=== PATIENT | male | born 1985 | race Caucasian/White ===

== ENCOUNTER 2018-01-27 23:17 | Emergency (ER) | payer BC ==
[2018-01-28 00:20] LABS: CHLORIDE,CL 106 mmol/L (98-107); SODIUM,NA 140 mmol/L (136-148)
--- NOTE | 2018-01-28 00:57 | EDM.PDOC ---
ED HPI GENERAL MEDICAL PROBLEM - General Chief Complaint: Respiratory Problem Stated Complaint: TROUBLE BREATHING/SICK Time Seen by Provider: 01/27/18 23:59 Source of Information: Reports: Patient History Limitations: Reports: No Limitations - History of Present Illness INITIAL COMMENTS - FREE TEXT/NARRATIVE: HISTORY AND PHYSICAL: History of present illness: 32-year-old male presenting emergency department with chief complaint of coughing 5 weeks. Patient states that for the past 5 weeks he has had coughing with yellowish/ hinson sputum production. He has had some episodes of nausea with coughing. He also reports some sweats and chills. No fever however. Feels his chest is tight but no overt chest pain, palpitations, shortness of breath, syncopal episodes, focal visits. Does not take medications regularly and has no known allergies. Is not a smoker and has no history of asthma or COPD. Review of systems: As per history of present illness and below otherwise all systems reviewed and negative. Past medical history: As per history of present illness and as reviewed below otherwise noncontributory. Surgical history: As per history of present illness and as reviewed below otherwise noncontributory. Social history: No reported history of drug or alcohol abuse. Family history: As per history of present illness and as reviewed below otherwise noncontributory. Physical exam: HEENT: Atraumatic, normocephalic, pupils reactive, negative for conjunctival pallor or scleral icterus, mucous membranes moist, throat clear, neck supple, nontender, trachea midline. Lungs: Clear to auscultation, breath sounds equal bilaterally, chest nontender. Heart: S1S2, regular, negative for clicks, rubs, or JVD. Abdomen: Soft, nondistended, nontender. Negative for masses or hepatosplenomegaly. Negative for costovertebral tenderness. Pelvis: Stable nontender. Genitourinary: Deferred. Rectal: Deferred. Extremities: Atraumatic, negative for cords or calf pain. Neurovascular unremarkable. Neuro: Awake, alert, oriented. Cranial nerves II through XII unremarkable. Cerebellum unremarkable. Motor and sensory unremarkable throughout. Exam nonfocal. Diagnostics: cbc,cmp,cxr Therapeutics: Z-Corbin 1, albuterol inhaler, Tessalon Perles Impression: Bronchitis Cough with production Plan: CBC, CMP, and chest x-ray were unremarkable. Patient most likely has bronchitis greater than 4 weeks. Secondary to being symptomatically for greater than 4 weeks we'll treat with a Z-Corbin as well as inhaled albuterol every 4-6 hours. Also given a prescription for Tesleeroyon Lesly. Instructed him to follow-up with a primary care provider as he is not had one. He should return to emergency department if any new or worsening symptoms. Definitive disposition and diagnosis as appropriate pending reevaluation and review of above. Chest Pain Score (Numeric/FACES): 5 - Related Data Allergies Allergy/AdvReac Type Severity Reaction Status Date / Time No Known Allergies Allergy Verified 01/27/18 23:31 Home Meds: Home Meds . [No Known Home Meds] 05/19/15 [History] Past Medical History - Past Health History Medical/Surgical History: Denies Medical/Surgical History HEENT History: Reports: None Cardiovascular History: Reports: None Respiratory History: Reports: None Gastrointestinal History: Reports: None Genitourinary History: Reports: None Musculoskeletal History: Reports: None Neurological History: Reports: None Psychiatric History: Reports: None Endocrine/Metabolic History: Reports: None Hematologic History: Reports: None Immunologic History: Reports: None Oncologic (Cancer) History: Reports: None Dermatologic History: Reports: None - Infectious Disease History Infectious Disease History: Reports: None - Past Surgical History Head Surgeries/Procedures: Reports: None Male Surgical History: Reports: None Social & Family History - Tobacco Use Smoking Status *Q: Never Smoker Second Hand Smoke Exposure: No - Caffeine Use Caffeine Use: Reports: None - Recreational Drug Use Recreational Drug Use: No ED ROS GENERAL - Review of Systems Review Of Systems: ROS reveals no pertinent complaints other than HPI. ED EXAM, GENERAL - Physical Exam Exam: See Below Course - Vital Signs Last Recorded V/S: Last Vital Signs Temp 97.4 F 01/27/18 23:28 Pulse 87 01/27/18 23:49 Resp 18 01/27/18 23:49 BP 135/91 H 01/27/18 23:49 Pulse Ox 96 01/27/18 23:28 - Orders/Labs/Meds Orders: Active Orders 24 hr Category Date Time Status CXR [Chest 2V] [CR] Stat Exams 01/27/18 23:44 Taken Labs: Laboratory Tests 01/27/18 01/27/18 Range/Units 23:50 23:50 WBC 7.81 (4.0-11.0) K/uL RBC 5.36 (4.50-5.90) M/uL Hgb 16.0 (13.0-17.0) g/dL Hct 44.7 (38.0-50.0) % MCV 83.4 (80.0-98.0) fL MCH 29.9 (27.0-32.0) pg MCHC 35.8 (31.0-37.0) g/dL RDW Std Deviation 38.2 (28.0-62.0) fl RDW Coeff of Brock 13 (11.0-15.0) % Plt Count 265 (150-400) K/uL MPV 9.80 (7.40-12.00) fL Neut % (Auto) 50.4 (48.0-80.0) % Lymph % (Auto) 37.6 (16.0-40.0) % [place] % (Auto) 8.5 (0.0-15.0) % Eos % (Auto) 3.2 (0.0-7.0) % Baso % (Auto) 0.3 (0.0-1.5) % Neut # (Auto) 3.9 (1.4-5.7) K/uL Lymph # (Auto) 2.9 H (0.6-2.4) K/uL [place] # (Auto) 0.7 (0.0-0.8) K/uL Eos # (Auto) 0.3 (0.0-0.7) K/uL Baso # (Auto) 0.0 (0.0-0.1) K/uL Nucleated RBC % 0.0 /100WBC Nucleated RBCs # 0 K/uL Sodium 140 (136-148) mmol/L Potassium 3.9 (3.5-5.1) mmol/L Chloride 106 (98-107) mmol/L Carbon Dioxide 28.5 (21.0-32.0) mmol/L BUN 18 (7.0-18.0) mg/dL Creatinine 1.3 (0.8-1.3) mg/dL Est Cr Clr Drug Dosing 76.98 mL/min Estimated GFR (MDRD) > 60.0 ml/min Glucose 141 H (74-106) mg/dL Calcium 8.4 L (8.5-10.1) mg/dL Total Bilirubin 0.6 (0.2-1.0) mg/dL AST 19 (15-37) IU/L ALT 45 (14-63) IU/L Alkaline Phosphatase 78 (46-116) U/L Total Protein 7.5 (6.4-8.2) g/dL Albumin 4.0 (3.4-5.0) g/dL Globulin 3.5 (2.0-3.5) g/dL Albumin/Globulin Ratio 1.1 L (1.3-2.8) Departure - Departure Time of Disposition: 00:56 Disposition: Home, Self-Care 01 Condition: Good Clinical Impression: Bronchitis - Discharge Information Referrals: PCP,None [Primary Care Provider] - Additional Instructions: My general discharge The following information is given to patients seen in the emergency department who are being discharged to home. This information is to outline your options for follow-up care. We provide all patients seen in our emergency department with a follow-up referral. The need for follow-up, as well as the timing and circumstances, are variable depending upon the specifics of your emergency department visit. If you don't have a primary care physician on staff, we will provide you with a referral. We always advise you to contact your personal physician following an emergency department visit to inform them of the circumstance of the visit and for follow-up with them and/or the need for any referrals to a consulting specialist. The emergency department will also refer you to a specialist when appropriate. This referral assures that you have the opportunity for follow-up care with a specialist. All of these measure are taken in an effort to provide you with optimal care, which includes your follow-up. Under all circumstances we always encourage you to contact your private physician who remains a resource for coordinating your care. When calling for follow-up care, please make the office aware that this follow-up is from your recent emergency room visit. If for any reason you are refused follow-up, please contact the [facility] Emergency Department at and asked to speak to the emergency department charge nurse. [facility] [address] [place] [id number] [facility] [address] [place] [address] Follow-up with one of the above numbers for primary care physician within the next 1-2 weeks. Take medications as prescribed. Return to emergency department if any new or worsening symptoms. - My Orders Last 24 Hours: My Active Orders 01/27/18 23:44 CXR [Chest 2V] [CR] Stat - Assessment/Plan Last 24 Hours: My Active Orders 01/27/18 23:44 CXR [Chest 2V] [CR] Stat
[2018-01-28 01:28] VITALS: BP 130/78
--- NOTE | 2018-01-29 09:47 | CR ---
EXAM DATE: 01/27/18 PATIENT'S AGE: 32 Patient: JUAN PABLO DUVALL Facility: [place], [place] Site . Site : [id number] Study: XRay Chest [id number]/4/2018 12:35:44 AM Ordering Physician: Doctor Delacruz Final Report: INDICATION: cough productive CHEST, PA AND LATERAL Upright PA and lateral radiographs of the chest were performed. Comparison: No previous studies are currently available for comparison. The lungs appear clear and there are no pleural effusions. Heart size and pulmonary vasculature appear normal. Visualized bones show no significant findings. IMPRESSION: No acute intrathoracic abnormality identified. ROSALVA DUNLAP MD [employer] Dictated by: Jose Dunlap MD @ 01/28/2018 00:38:57 (Electronic Signature) Report Signed by Proxy. [facility]
== END 2018-01-28 01:20 | disposition home or self-care (01) ==
LOC: MW.ED 23:17
DX: J40 Bronchitis, not specified as acute or chronic (principal)
CPT/HCPCS: 36415; 71046; 71046-26; 80053; 85025; 99284

== ENCOUNTER 2019-12-30 16:36 | Emergency (ER) | payer BC ==
[2019-12-30] MEDS ORDERED: Ondansetron 4 MG/2 ML SDV IVPUSH ONE (16:58)
[2019-12-30] MEDS ORDERED: Ketorolac 30 MG/ML SDV IVPUSH ONE (16:58)
[2019-12-30] MEDS ORDERED: Sodium Chloride 0.9% 1,000 ML IV ONE (16:58)
--- NOTE | 2019-12-30 17:01 | EDM.PDOC ---
ED HPI GENERAL MEDICAL PROBLEM - General Chief Complaint: Abdominal Pain Stated Complaint: LEFT ABDOMINAL PAIN Time Seen by Provider: 12/30/19 16:42 Source of Information: Reports: Patient History Limitations: Reports: No Limitations - History of Present Illness INITIAL COMMENTS - FREE TEXT/NARRATIVE: HISTORY AND PHYSICAL: History of present illness: Patient is a 34-year-old male who presents to the emergency room with complaints of left low abdominal pain that radiates into his flank. He states approximately 1 to 2 hours prior to arrival he had the sensation of needing to void and he was unable to go. He then started having pain in the left low abdomen that radiates into his left flank area. Prior to this episode he has been voiding and having routine bowel movements without any difficulty or blood noted. He denies any injury, trauma or falls. Patient denies any fever, chills , headache, change in vision, syncope or near syncope. Denies any chest pain, back pain, shortness of breath or cough. Denies any vomiting, diarrhea, or constipation. Denies any testicular pain, swelling or redness. Patient has been eating and drinking appropriately. Review of systems: As per history of present illness and below otherwise all systems reviewed and negative. Past medical history: As per history of present illness and as reviewed below otherwise noncontributory. Surgical history: As per history of present illness and as reviewed below otherwise noncontributory. Social history: See social history for further information Family history: As per history of present illness and as reviewed below otherwise noncontributory. Physical exam: General: Developed and well-nourished 34-year-old male. Alert and oriented. Nontoxic-appearing and in moderate discomfort due to pain. HEENT: Atraumatic, normocephalic, pupils equal and reactive bilaterally, negative for conjunctival pallor or scleral icterus, mucous membranes moist, nontender, trachea midline. No drooling or trismus noted. No meningeal signs. No hot potato voice noted. Lungs: Clear to auscultation, breath sounds equal bilaterally, chest nontender. Heart: S1S2, regular rate and rhythm without overt murmur Abdomen: Soft, nondistended, nontender. Negative for masses or hepatosplenomegaly. Negative for costovertebral tenderness. Pelvis: Stable nontender. Skin: Intact, warm, dry. No lesions or rashes noted. Extremities: Atraumatic, moves all extremities per self without difficulty or deficits, negative for cords or calf pain. Neurovascular unremarkable. Neuro: Awake, alert, oriented. Cranial nerves II through XII unremarkable. Cerebellum unremarkable. Motor and sensory unremarkable throughout. Exam nonfocal. Notes: CT of the abdomen and pelvis shows a 2.4 mm obstructing stone in the left distal ureter located at the UVJ. There is no hydronephrosis. Lab work is otherwise unremarkable. We will continue to attempt to control his pain as he did not get as much relief as expected with the Toradol and morphine. Patient was made aware of CT and lab findings. Patient has been up to void 2-3 times since being here, he now feels like he can fully empty his bladder. Patient's pain has improved greatly. We discussed signs and symptoms that would prompt him to return to the emergency room. Medication, follow-up and supportive care measures were reviewed and discussed. Voices understanding and is agreeable to plan of care. Denies any further questions or concerns at this time. Diagnostics: CBC, CMP, UA, CT abd/pelvis Therapeutics: IV fluids, Toradol, Zofran Prescription: Percocet, Zofran, Flomax Impression: Kidney stone, left Plan: 1. CT shows you have a kidney stone in the left ureter. INCREASE YOUR FLUIDS to help move the stone into the bladder. 2. Take the Flomax once daily while symptomatic. Zofran as needed for nausea. You can alternate Tylenol and/or Ibuprofen for pain. Percocet for moderate to severe pain, take as needed. 3. Call Dr Lynn's office to set up a follow up appointment, if you haven't passed the stone. Return to the ED as needed as discussed. Definitive disposition and diagnosis as appropriate pending reevaluation and review of above. abdomen Pain Score (Numeric/FACES): 9 - Related Data Allergies Allergy/AdvReac Type Severity Reaction Status Date / Time No Known Allergies Allergy Verified 12/30/19 17:25 Home Meds: Home Meds Ondansetron [Zofran ODT] 4 mg PO Q6H PRN #8 tab.dis 12/30/19 [Rx] Tamsulosin [Tamsulosin 24 Hr] 0.4 mg PO DAILY 5 Days #5 cap.er 12/30/19 [Rx] oxyCODONE HCl/Acetaminophen [Percocet 7.5-325 mg Tablet] 1 each PO Q4HR PRN #15 tablet 12/30/19 [Rx] Past Medical History - Past Health History Medical/Surgical History: Denies Medical/Surgical History HEENT History: Reports: None Cardiovascular History: Reports: None Respiratory History: Reports: None Gastrointestinal History: Reports: None Genitourinary History: Reports: None Musculoskeletal History: Reports: None Neurological History: Reports: None Psychiatric History: Reports: None Endocrine/Metabolic History: Reports: None Hematologic History: Reports: None Immunologic History: Reports: None Oncologic (Cancer) History: Reports: None Dermatologic History: Reports: None - Infectious Disease History Infectious Disease History: Reports: None - Past Surgical History Head Surgeries/Procedures: Reports: None Male Surgical History: Reports: None Social & Family History - Caffeine Use Caffeine Use: Reports: None ED ROS GENERAL - Review of Systems Review Of Systems: Comprehensive ROS is negative, except as noted in HPI. ED EXAM, RENAL/ - Physical Exam Exam: See Below (See dictation) Course - Vital Signs Last Recorded V/S: Last Vital Signs Temp 96.6 F L 12/30/19 17:34 Pulse 92 12/30/19 17:34 Resp 18 12/30/19 17:34 BP 149/93 H 12/30/19 17:34 Pulse Ox 99 12/30/19 17:34 - Orders/Labs/Meds Labs: Laboratory Tests 12/30/19 12/30/19 12/30/19 Range/Units 17:07 17:11 17:11 WBC 9.77 (4.0-11.0) K/uL RBC 5.16 (4.50-5.90) M/uL Hgb 15.4 (13.0-17.0) g/dL Hct 44.3 (38.0-50.0) % MCV 85.9 (80.0-98.0) fL MCH 29.8 (27.0-32.0) pg MCHC 34.8 (31.0-37.0) g/dL RDW Std Deviation 40.6 (28.0-62.0) fl RDW Coeff of Brock 13 (11.0-15.0) % Plt Count 261 (150-400) K/uL MPV 10.10 (7.40-12.00) fL Neut % (Auto) 49.5 (48.0-80.0) % Lymph % (Auto) 33.4 (16.0-40.0) % [place] % (Auto) 9.8 (0.0-15.0) % Eos % (Auto) 7.1 H (0.0-7.0) % Baso % (Auto) 0.2 (0.0-1.5) % Neut # (Auto) 4.8 (1.4-5.7) K/uL Lymph # (Auto) 3.3 H (0.6-2.4) K/uL [place] # (Auto) 1.0 H (0.0-0.8) K/uL Eos # (Auto) 0.7 (0.0-0.7) K/uL Baso # (Auto) 0.0 (0.0-0.1) K/uL Nucleated RBC % 0.0 /100WBC Nucleated RBCs # 0 K/uL Sodium 143 (136-148) mmol/L Potassium 3.5 (3.5-5.1) mmol/L Chloride 104 (98-107) mmol/L Carbon Dioxide 27.8 (21.0-32.0) mmol/L BUN 16 (7.0-18.0) mg/dL Creatinine 1.4 H (0.8-1.3) mg/dL Est Cr Clr Drug Dosing 77.49 mL/min Estimated GFR (MDRD) 58.4 ml/min Glucose 108 H (74-106) mg/dL Calcium 9.1 (8.5-10.1) mg/dL Total Bilirubin 0.8 (0.2-1.0) mg/dL AST 39 H (15-37) IU/L ALT 65 H (14-63) IU/L Alkaline Phosphatase 80 (46-116) U/L Total Protein 7.3 (6.4-8.2) g/dL Albumin 4.1 (3.4-5.0) g/dL Globulin 3.2 (2.6-4.0) g/dL Albumin/Globulin Ratio 1.3 (0.9-1.6) Urine Color YELLOW Urine Appearance HAZY Urine pH 5.5 (5.0-8.0) Ur Specific [place] >= 1.030 (1.001-1.035) Urine Protein NEGATIVE (NEGATIVE) mg/dL Urine Glucose (UA) NEGATIVE (NEGATIVE) mg/dL Urine Ketones NEGATIVE (NEGATIVE) mg/dL Urine Occult Blood TRACE-INTACT H (NEGATIVE) Urine Nitrite NEGATIVE (NEGATIVE) Urine Bilirubin NEGATIVE (NEGATIVE) Urine Urobilinogen 0.2 (<2.0) EU/dL Ur Leukocyte Esterase NEGATIVE (NEGATIVE) Urine RBC 0-4 (0-2/HPF) Urine WBC 0-3 (0-5/HPF) Ur Epithelial Cells RARE (NONE-FEW) Urine Bacteria FEW (NEGATIVE) Meds: Medications Discontinued Medications Generic Name Dose Route Start Last Admin Trade Name Freq PRN Reason Stop Dose Admin Hydromorphone HCl 1 mg 12/30/19 17:47 Dilaudid IVPUSH 12/30/19 17:48 ONETIME ONE Sodium Chloride 1,000 mls @ 999 mls/hr 12/30/19 16:58 12/30/19 17:12 Normal Saline IV 12/30/19 17:58 999 mls/hr STAT ONE Administration Ketorolac Tromethamine 30 mg 12/30/19 16:58 12/30/19 17:14 Toradol IVPUSH 12/30/19 16:59 30 mg ONETIME ONE Administration Morphine Sulfate 4 mg 12/30/19 17:17 12/30/19 17:32 Morphine IVPUSH 12/30/19 17:18 4 mg ONETIME ONE Administration Ondansetron HCl 4 mg 12/30/19 16:58 12/30/19 17:12 Zofran IVPUSH 12/30/19 16:59 4 mg ONETIME ONE Administration Tamsulosin HCl 0.4 mg 12/30/19 17:47 Flomax PO 12/30/19 17:48 ONETIME ONE Departure - Departure Time of Disposition: 18:39 Disposition: Home, Self-Care 01 Clinical Impression: Kidney stone on left side - Discharge Information Prescriptions: oxyCODONE HCl/Acetaminophen [Percocet 7.5-325 mg Tablet] 1 each PO Q4HR PRN #15 tablet PRN Reason: Pain Ondansetron [Zofran ODT] 4 mg PO Q6H PRN #8 tab.dis PRN Reason: Nausea Tamsulosin [Tamsulosin 24 Hr] 0.4 mg PO DAILY 5 Days #5 cap.er Instructions: Kidney Stones, [id number] Referrals: PCP,None [Primary Care Provider] - Forms: ED Department Discharge Additional Instructions: The following information is given to patients seen in the emergency department who are being discharged to home. This information is to outline your options for follow-up care. We provide all patients seen in our emergency department with a follow-up referral. The need for follow-up, as well as the timing and circumstances, are variable depending upon the specifics of your emergency department visit. If you don't have a primary care physician on staff, we will provide you with a referral. We always advise you to contact your personal physician following an emergency department visit to inform them of the circumstance of the visit and for follow-up with them and/or the need for any referrals to a consulting specialist. The emergency department will also refer you to a specialist when appropriate. This referral assures that you have the opportunity for follow-up care with a specialist. All of these measure are taken in an effort to provide you with optimal care, which includes your follow-up. Under all circumstances we always encourage you to contact your private physician who remains a resource for coordinating your care. When calling for follow-up care, please make the office aware that this follow-up is from your recent emergency room visit. If for any reason you are refused follow-up, please contact the [facility] Emergency Department at and asked to speak to the emergency department charge nurse. [facility] - Urology [address] [place] [id number] shows you have a kidney stone in the left ureter. INCREASE YOUR FLUIDS to help move the stone into the bladder. 2. Take the Flomax once daily while symptomatic. Zofran as needed for nausea. You can alternate Tylenol and/or Ibuprofen for pain. [place] for moderate to severe pain, you can take 1-2 tabs every 4-6 hours as needed. 3. Call Dr Lynn's office to set up a follow up appointment, if you haven't passed the stone. Return to the ED as needed as discussed. Sepsis Event Note - Focused Exam Vital Signs: Vital Signs Temp Pulse Resp BP Pulse Ox 12/30/19 17:34 96.6 F L 92 18 149/93 H 99 12/30/19 17:00 97.5 F 88 18 146/71 H 98 Date Exam was Performed: 12/30/19 Time Exam was Performed: 18:37
[2019-12-30] MEDS ORDERED: Morphine 4 MG/ML Syringe IVPUSH ONE (17:17)
--- NOTE | 2019-12-30 17:42 | CT ---
CT abdomen and pelvis Technique: Multiple axial sections were obtained from above the dome of the diaphragm inferiorly through the pubic symphysis. Intravenous and oral contrast was not utilized. Comparison: No previous abdominal imaging is available. Findings: Visualized lung bases show nothing acute. Noncontrast appearance of the liver and spleen appears within normal limits. Adrenal glands show no nodule. Pancreas is within normal limits. Left ureter is mildly prominent in size which is due to an obstructing distal left ureteral stone measuring about 2.4 mm which is located at the UVJ. No other ureteral or renal calculi are seen. Aorta shows no aneurysm. No retroperitoneal adenopathy or mesenteric abnormalities are seen. No pelvic mass or adenopathy is seen. No free fluid or inflammatory change is appreciated. Appendix is seen which is normal in size. Small fat-containing right inguinal hernia is noted. Bone window settings were reviewed which show no acute osseous finding. Impression: 1. 2.4 mm obstructing stone within the distal left ureter located at the UVJ. 2. No other acute finding is seen on noncontrast CT study of the abdomen and pelvis. Diagnostic code #3 This report was dictated in MDT
[2019-12-30] MEDS ORDERED: Tamsulosin 0.4 MG Cap.ER PO ONE (17:47)
[2019-12-30] MEDS ORDERED: HYDROmorphone 1 MG/ML Syringe IVPUSH ONE (17:47)
[2019-12-30 18:00] LABS: CARBON DIOXIDE,CO2 27.8 mmol/L (21.0-32.0); POTASSIUM,K 3.5 mmol/L (3.5-5.1)
[2019-12-30 19:24] VITALS: BP 125/75; PULSE 86
== END 2019-12-30 19:05 | disposition home or self-care (01) ==
LOC: MW.ED 16:36
DX: N20.0 Calculus of kidney (principal)
CPT/HCPCS: 36415; 74176; 80053; 81001; 85025; 96374; 96375; 99284; A9270; J1170; J1885; J2270; J2405; J7030; 99283

== ENCOUNTER 2022-07-27 19:28 | Emergency (ER) | payer BC ==
[2022-07-27 20:57] VITALS: BP 119/69; PULSE 109
[2022-07-27 21:29] LABS: CORONAVIRUS COVID-19 NAA NEGATIVE (NEGATIVE); INFLUENZA A NAA POSITIVE (NEGATIVE); INFLUENZA B NAA NEGATIVE (NEGATIVE); RESPIRATORY SYNCYTIAL VIR NAA NEGATIVE (NEGATIVE)
[2022-07-27] MEDS ORDERED: Sodium Chloride 0.9% 1,000 ML IV ONE (21:37)
[2022-07-27] MEDS ORDERED: Ketorolac 60 MG/2 ML SDV IM ONE (21:37)
[2022-07-27] MEDS ORDERED: Sodium Chloride 0.9% 2.5 ML Syringe FLUSH PRN (21:37)
[2022-07-27] MEDS ORDERED: Sodium Chloride 0.9% 10 ML Syringe FLUSH PRN (21:37)
[2022-07-27] MEDS ORDERED: Metoclopramide 10 MG/2 ML SDV IVPUSH ONE (21:37)
[2022-07-27] MEDS ORDERED: diphenhydrAMINE 50 MG/ML SDV IVPUSH ONE (21:38)
== END 2022-07-27 23:14 | disposition home or self-care (01) ==
LOC: MW.ED 19:28
DX: J11.1 Influenza due to unidentified influenza virus with other respiratory manifestations (principal); Z20.822 Contact with and (suspected) exposure to COVID-19
CPT/HCPCS: 0241U; 96372; 96374; 96375; 99283; J1200; J1885; J2765; J3490; J7030